=== PATIENT | male | born 1940 | race Caucasian/White ===

== ENCOUNTER 2016-08-03 17:31 | Emergency (ER) | payer MEDICARE, OTHER ==
[2016-08-03 18:15] LABS: Hematocrit 44 % (42-52); Hemoglobin 13.9 g/dl (14.0-18.0); Mean Corpuscular HGB Conc 32 g/dl (31-36); Mean Corpuscular Hemoglobin 25 pg (27-31); Mean Corpuscular Volume 79 fL (80-94); Mean Platelet Volume 8 um3 (7.4-10.4); Red Blood Count 5.55 10^6/ul (4.0-5.4); Red Cell Distribution Width 18 % (10.5-15); White Blood Count 8.6 10^3/ul (3.5-10.8)
[2016-08-03] MEDS ORDERED: NS 0.9% 1000 ML* 1,000 ML IV SCH (18:15)
[2016-08-03 18:33] LABS: ALT 10 U/L (7-52); AST 20 U/L (13-39); Albumin 4.2 g/dL (3.2-5.2); Alkaline Phosphatase 69 U/L (34-104); Anion Gap 6 mmol/L (2-11); BUN/Creatinine Ratio 24.6 (8-20); Blood Urea Nitrogen 16 mg/dL (6-24); C Reactive Protein 9.82 mg/L (< 5.00); CO2 Carbon Dioxide 28 mmol/L (22-32); Calcium 10.6 mg/dL (8.6-10.3); Chloride 105 mmol/L (101-111); EGFR African American 154.4 (>60); EGFR Non-African American 120.1 (>60); Globulin 2.9 g/dL (2-4); Glucose 159 mg/dL (70-100); Lipase 59 U/L (11.0-82.0); Potassium 4.2 mmol/L (3.5-5.0); Sodium 139 mmol/L (133-145); Total Protein 7.1 g/dL (6.4-8.9)
[2016-08-03] MEDS ORDERED: Iodixanol* (CONTRAST) 320 MG/ML 100 ML SDV IV ONE (18:56)
--- NOTE | 2016-08-03 19:25 | ED ---
Abdominal Pain/Male - HPI Summary HPI Summary: Patient presents after missing a step at home and falling on his deck. He landed on his left side and suffered abrasions to his elbow and knee. His main concern is an area of swelling on his left abdomen just below his ribs that is taut and tender. He is on Warfarin for an artificial valve and hx of DVT. He denies hitting his head, neck pain, LOC, SOB, CP or lightheadedness. His pain is made worse by coughing. No N/V/D or blood in his urine. - History of Current Complaint Chief Complaint: EDTraumaMultiple Stated Complaint: FALL/LT SIDE INJURY Time Seen by Provider: 08/03/16 18:03 Hx Obtained From: Patient, Family/Diamond Polisher Onset/Duration: Sudden Onset Timing: Constant Severity Initially: Mild Severity Currently: Moderate Pain Intensity: 5 Location: Discrete At: LUQ Radiates: No Character: Dull Aggravating Factor(s): Movement Alleviating Factor(s): Nothing Associated Signs And Symptoms: Positive: Negative - Allergies/Home Medications Allergies/Adverse Reactions: Allergies Allergy/AdvReac Type Severity Reaction Status Date / Time Phenytoin [From Dilantin] AdvReac Severe DESTROYS Verified 04/14/14 12:58 PLATELETS Valproic Acid [From Depakote] AdvReac Severe RAISES Verified 04/14/14 12:58 AMMONIA LEVELS Stat[place] AdvReac Intermediate CRAMPS Verified 04/14/14 12:58 PMH/Surg Hx/FS Hx/Imm Hx Endocrine/Hematology History: Reports: Hx Anticoagulant Therapy, Hx Diabetes Denies: Hx Systemic Lupus Erythematosus, Hx Thyroid Disease, Hx Anemia Cardiovascular History: Reports: Hx Hypercholesterolemia, Hx Hypertension, 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, Other Cardiovascular Problems/Disorders - A-FIB, HTN Denies: Hx Angina, Hx Congestive Heart Failure Respiratory History: Denies: Hx Sleep Apnea GI History: Reports: Hx Gall Bladder Disease - removed 5 yrs ago, Hx Gastroesophageal Reflux Disease, Other GI Disorders - DYSLIPIDEMIA, GERD Denies: Hx Ulcer History: Reports: Hx Renal Disease - RENAL FAILURE DURING SEPTIC EPISODE YRS AGO, Other Problems/Disorders - RENAL FAILURE AT TIME OF SEPTIC EPISODE YRS AGO Denies: Hx Dialysis, Hx Kidney Infection, Hx Kidney Stones Musculoskeletal History: Reports: Hx Bursitis Denies: Hx Gout Sensory History: Reports: Hx Contacts or Glasses, Hx Hearing Aid Denies: Hx Glaucoma, Hx Macular Degeneration Opthamlomology History: Reports: Hx Contacts or Glasses Denies: Hx Glaucoma, Hx Macular Degeneration Neurological History: Reports: Hx Seizures - R hand, Other Neuro Impairments/ Disorders - SEIZURES, BENIGN BRAIN TUMOR, DEPRESSION, SLEEP DISORDER Denies: Hx Headaches, Hx Migraine Psychiatric History: Denies: Hx Suicide Attempt, Hx Substance Abuse - Cancer History Cancer Type, 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 Hx Chemotherapy: No Hx Radiation Therapy: No - Surgical History Surgery Procedure, Year, and Place: TONSILECTOMY, AORTIC VALVE REPLACED , L HIP REPLACEMENT, EXCISION OF BENIGN MENINGIOMA, MALIK, TONSILECTOMY Hx Anesthesia Reactions: No Infectious Disease History: No Infectious Disease History: Denies: Hx Hepatitis, Hx Shingles, Hx Tuberculosis, Traveled Outside the [place] in Last 30 Days - Family History Known Family History: Positive: None - Social History Occupation: Retired Lives: With Family Alcohol Use: None Substance Use Type: Reports: None Hx Tobacco Use: Yes - CHEW Smoking Status (MU): Former Smoker Review of Systems Negative: Chest Pain Negative: Shortness Of Breath Positive: Abdominal Pain. Negative: Vomiting, Diarrhea, Nausea Positive: Myalgia, Edema - LUQ of abdomen Positive: Bruising - left elbow, Other - abrasion left knee Negative: Paresthesia, Numbness All Other Systems Reviewed And Are Negative: Yes Physical Exam - Summary Physical Exam Summary: VITAL SIGNS: Reviewed. GENERAL: Patient is a obese male who is lying comfortable in the stretcher. Patient is not in any acute respiratory distress. HEAD AND FACE: Normocephalic and atraumatic. EYES: PERRLA, EOMI x 2, No injected conjunctiva. EARS: Hearing grossly intact. Ear canals and tympanic membranes are WNL. MOUTH: Oropharynx within normal limits. NECK: Supple, trachea is midline, no adenopathy, no JVD. CHEST: Symmetric, no tenderness at palpation LUNGS: Clear to auscultation bilaterally. No wheezing or crackles. CVS: RRR,, S1 and S2 present, no murmurs or gallops appreciated. ABDOMEN: Soft, positive induration in the LLQ and left flank area of approximately 10 cm x 3 cm EXTREMITIES: FROM in all major joints, no edema, no cyanosis or clubbing. NEURO: Alert and oriented x 3. No acute neurological deficits. Speech is normal. SKIN: Dry and warm Triage Information Reviewed: Yes Vital Signs On Initial Exam: Initial Vitals Temp Pulse Resp BP Pulse Ox 98.4 F 100 19 120/84 93 08/03/16 17:38 08/03/16 17:38 08/03/16 17:38 08/03/16 17:38 08/03/16 17:38 Vital Signs Reviewed: Yes Appearance: Positive: Well-Appearing, Well-Nourished, Pain Distress Skin: Positive: Warm, Skin Color Reflects Adequate Perfusion, Dry, Tender - abrasion to left knee cap; left elbow has mild bruising and abrasion over lateral epicondyle, Soft Head/Face: Positive: Normal Head/Face Inspection Eyes: Positive: EOMI, KONRAD, Conjunctiva Clear ENT: Positive: Hearing grossly normal Neck: Positive: Supple, Nontender Respiratory/Lung Sounds: Positive: Clear to Auscultation, Breath Sounds Present Cardiovascular: Positive: RRR Abdomen Description: Positive: Soft - RLQ, RUQ, LLQ, Distended - LUQ with taut palpable mass. Negative: Nontender, CVA Tenderness (R), CVA Tenderness (L), Pulsatile Mass Bowel Sounds: Positive: Hypoactive Musculoskeletal: Positive: Strength/ROM Intact Neurological: Positive: Sensory/Motor Intact, Alert, Oriented to Person Place, Time, CN Intact II-III, NV Bundle Intact Distally Psychiatric: Positive: Affect/Mood Appropriate AVPU Assessment: Alert - [place] Coma Scale Coma Scale Total: 15 Diagnostics - Vital Signs Vital Signs Temp Pulse Resp BP Pulse Ox 08/03/16 19:00 93 21 119/72 94 08/03/16 18:50 88 24 106/63 91 08/03/16 18:45 105/59 08/03/16 18:43 82 17 92 08/03/16 18:40 86 18 109/55 92 08/03/16 18:36 98.4 F 94 20 105/63 93 08/03/16 18:30 86 17 105/63 93 08/03/16 18:15 85 19 111/74 93 08/03/16 18:06 84 21 112/61 93 08/03/16 18:00 88 20 114/68 92 08/03/16 17:53 92 87 08/03/16 17:52 121/73 08/03/16 17:38 98.4 F 100 19 120/84 93 - Laboratory Lab Results: Lab Results 08/03/16 08/03/16 08/03/16 Range/Units 18:08 18:08 18:08 WBC 8.6 (3.5-10.8) 10^3/ul RBC 5.55 H (4.0-5.4) 10^6/ul Hgb 13.9 L (14.0-18.0) g/dl Hct 44 (42-52) % MCV 79 L (80-94) fL MCH 25 L (27-31) pg MCHC 32 (31-36) g/dl RDW 18 H (10.5-15) % Plt Count 215 (150-450) 10^3/ul MPV 8 (7.4-10.4) um3 Neut % (Auto) 65.4 (38-83) % Lymph % (Auto) 14.8 L (25-47) % [place] % (Auto) 11.3 H (1-9) % Eos % (Auto) 8.1 H (0-6) % Baso % (Auto) 0.4 (0-2) % Absolute Neuts (auto) 5.6 (1.5-7.7) 10^3/ul Absolute Lymphs (auto) 1.3 (1.0-4.8) 10^3/ul Absolute Monos (auto) 1.0 H (0-0.8) 10^3/ul Absolute Eos (auto) 0.7 H (0-0.6) 10^3/ul Absolute Basos (auto) 0 (0-0.2) 10^3/ul Absolute Nucleated RBC 0.03 10^3/ul Nucleated RBC % 0.4 Sodium 139 (133-145) mmol/L Potassium 4.2 (3.5-5.0) mmol/L Chloride 105 (101-111) mmol/L Carbon Dioxide 28 (22-32) mmol/L Anion Gap 6 (2-11) mmol/L BUN 16 (6-24) mg/dL Creatinine 0.65 L (0.67-1.17) mg/dL Est GFR ( Amer) 154.4 (>60) Est GFR (Non-Af Amer) 120.1 (>60) BUN/Creatinine Ratio 24.6 H (8-20) Glucose 159 H (70-100) mg/dL Lactic Acid 1.4 (0.5-2.0) mmol/L Calcium 10.6 H (8.6-10.3) mg/dL Total Bilirubin 0.20 (0.2-1.0) mg/dL AST 20 (13-39) U/L ALT 10 (7-52) U/L Alkaline Phosphatase 69 (34-104) U/L C-Reactive Protein 9.82 H (< 5.00) mg/L Total Protein 7.1 (6.4-8.9) g/dL Albumin 4.2 (3.2-5.2) g/dL Globulin 2.9 (2-4) g/dL Albumin/Globulin Ratio 1.4 (1-3) Lipase 59 (11.0-82.0) U/L Result Diagrams: 08/03/16 18:08 08/03/16 18:08 Lab Statement: Any lab studies that have been ordered have been reviewed, and results considered in the medical decision making process. - CT No standard instances CT Interpretation: Positive (See Comments) - 10.6cm by 6.4cm by 14cm cephalocaudal intramuscular hematoma at the Left external oblique at the level of the anterior superior iliac spine. Hyperdense focus within hematoma consistent with contrast extravasation indicating ongoing arterial hemorrhage. CT Interpretation Completed By: Radiologist Abdominal Pain Fem Course/Dx - Diagnoses Differential Diagnosis/HQI/PQRI: Abdominal Aortic Aneurysm, Appendicitis, Bowel Obstruction, Urinary Tract Infection, Other Provider Diagnoses: intramuscular abdominal hemorrhage Discharge - Discharge Plan Condition: Stable Disposition: TRANS HIGHER LVL OF CARE FAC Referrals: Scottie Ziegler MD [Primary Care Provider] -
--- NOTE | 2016-08-03 19:55 | RAD ---
INDICATION: Fall large LEFT abdominal hematoma. Post cholecystectomy. COMPARISON: February 05, 2016 chest radiograph and April 14, [address] TECHNIQUE: Multidetector CT images were obtained from the lung apices to the ischial tuberosities with 99 mL Visipaque 320 IV contrast. No oral contrast administered. CHEST REPORT: Advanced emphysema with associated mild to moderate interstitial fibrosis. No focal pulmonary lesion, pulmonary contusion, pleural effusion, pneumothorax. Median sternotomy wires and prosthetic aortic valve. Negative for cardiomegaly or pericardial effusion. Negative for mediastinal hematoma. No evidence for traumatic injury of the thoracic aorta. Negative for aortic aneurysm or dissection. Negative for thoracic lymphadenopathy. Negative for fracture of the bony thorax. Diffuse thoracic degenerative spondylosis with multilevel ankylosis. Negative for soft tissue hematoma. CHEST IMPRESSION: 1. No evidence for traumatic thoracic injury. 2. Advanced emphysema with associated mild to moderate interstitial fibrosis. ABDOMEN PELVIS REPORT: Post cholecystectomy. Unremarkable liver without evidence for traumatic injury. Negative for biliary dilatation. Moderately atrophic pancreas without suspicious finding. Normal size spleen without evidence for traumatic injury. Negative for CT abnormality of the upper GI or small bowel. The appendix is not visualized. Unremarkable colon. Negative for ascites, free air, hernias. Normal adrenal glands. Unremarkable kidneys with symmetric contrast enhancement. Unremarkable ureters. Partially distended urinary bladder is partially obscured due to artifact from the LEFT hip prosthesis without gross abnormality. Negative for lymphadenopathy. 0.7 cm retroaortic lymph node subjacent to the RIGHT carotid the diaphragm is grossly unchanged. Atherosclerotic calcification of normal diameter abdominal aorta and iliac arteries. Negative for retroperitoneal hematoma. Physiologic distention of the IVC. 10.6 cm AP by 6.4 cm transverse by 14 cm cephalocaudal intramuscular hematoma at the LEFT external oblique abdominal muscle centered at the cephalocaudal level of the anterior superior iliac spine. Hyperdense focus within the hematoma is consistent with contrast extravasation indicating ongoing arterial hemorrhage. Negative for additional soft tissue plane hematoma. Negative for lumbar sacral spine, pelvis, or proximal femur fracture or articular malalignment. Normally located LEFT total hip prosthesis. ABDOMEN PELVIS IMPRESSION: 1. No evidence for abdominal pelvic traumatic visceral injury. 2. 10.6 cm AP by 6.4 cm transverse by 14 cm cephalocaudal intramuscular hematoma at the LEFT external oblique abdominal muscle centered at the cephalocaudal level of the anterior superior iliac spine. Hyperdense focus within the hematoma is consistent with contrast extravasation indicating ongoing arterial hemorrhage. Results discussed with VINCENT Harris 08/03/2016 7:49 PM EDT
[2016-08-03] MEDS ORDERED: Phytonadione INJ* 1 MG/0.5 ML ML IM ONE (20:00)
[2016-08-03 20:42] LABS: Alcohol < 10 mg/dL (<10)
[2016-08-03] MEDS ORDERED: Ondansetron INJ* 2 MG/ML VIAL IV ONE (20:43)
[2016-08-03] MEDS ORDERED: Morphine INJ* 4 MG/ML 1 ML SYRINGE IV ONE (20:43)
[2016-08-03] MEDS ORDERED: Ondansetron INJ* 2 MG/ML VIAL ONE (20:44)
[2016-08-03] MEDS ORDERED: Morphine INJ* 4 MG/ML 1 ML SYRINGE ONE (20:44)
[2016-08-03] MEDS ORDERED: Phytonadione INJ (Adult)* 10 MG/ML 1 ML AMP IM ONE (21:00)
[2016-08-03 21:12] VITALS: BP 130/99
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
== END 2016-08-03 21:09 | disposition short-term general hospital (02) ==
LOC: ED 17:31
DX: R58 Hemorrhage, not elsewhere classified (principal); S30.1XXA Contusion of abdominal wall, initial encounter; S80.219A Abrasion, unspecified knee, initial encounter; S50.319A Abrasion of unspecified elbow, initial encounter; W10.9XXA Fall (on) (from) unspecified stairs and steps, initial encounter; Y93.9 Activity, unspecified; Y92.89 Other specified places as the place of occurrence of the external cause; Z87.891 Personal history of nicotine dependence; Z79.01 Long term (current) use of anticoagulants; E11.9 Type 2 diabetes mellitus without complications; Z86.79 Personal history of other diseases of the circulatory system
CPT/HCPCS: 36415; 71260; 74177; 80053; 80320; 83605; 83690; 85025; 85610; 85730; 86140; 86850; 86900; 86901; 86927; 96372; 96375; 99284; G0480; J2270; J2405; J3430; P9017; Q9967

== ENCOUNTER 2017-05-26 12:00 | Inpatient (IN) | payer MEDICARE, OTHER ==
[2017-05-26] MEDS ORDERED: NS 0.9% 1000 ML* 1,000 ML IV ONE (12:19)
[2017-05-26] MEDS ORDERED: Piperacillin/Tazobac ADVAN(*) 3.375 GM in NS 0.9% 100 ML* 100 ML IVPB ONE (12:40)
[2017-05-26 12:41] LABS: Hematocrit 49 % (42-52); Hemoglobin 15.3 g/dl (14.0-18.0); Mean Corpuscular HGB Conc 31 g/dl (31-36); Mean Corpuscular Hemoglobin 26 pg (27-31); Mean Corpuscular Volume 83 fL (80-94); Mean Platelet Volume 8.7 um3 (7.4-10.4); Platelet Count 276 10^3/ul (150-450); Red Blood Count 5.88 10^6/ul (4.0-5.4); Red Cell Distribution Width 17 % (10.5-15); White Blood Count 13.9 10^3/ul (3.5-10.8)
[2017-05-26 13:01] LABS: EGFR Non-African American 26.1 (>60)
--- NOTE | 2017-05-26 13:03 | RAD ---
Indication: Low blood pressure. Confusion. Cardiac disease. Comparison: August 03, 2016 CT chest. Technique: Upright AP 1240 hours Report: Suboptimal inspiration for this patient compared with the prior exam with resulting crowding of the pulmonary markings. On this basis the RIGHT greater than LEFT basilar alveolar consolidation may represent atelectasis although pneumonia is not excluded. Diffuse mild prominence of interstitial markings with thickened peripheral interlobular septa. Small bilateral pleural effusions. Negative for pneumothorax. Median sternotomy wires. Mild cardiomegaly. Mildly prominent and ill-defined central pulmonary vasculature. IMPRESSION: 1. The constellation of findings is most consistent with pulmonary vascular congestion and interstitial edema with associated small effusions. 2. RIGHT greater than LEFT basilar atelectasis favored over pneumonia. 3. Chronic obstructive pulmonary disease based on correlation with prior CT.
[2017-05-26] MEDS ORDERED: DOPamine 200 MG/250 ML IVPREM* 200 MG/250 ML ML IV ONE (13:17)
[2017-05-26 13:21] LABS: ABS Basophils 0 10^3/ul (0-0.2); ABS Eosinophils 0.2 10^3/ul (0-0.6); ABS Lymphocytes 1.1 10^3/ul (1.0-4.8); ABS Neutrophils 10.6 10^3/ul (1.5-7.7); ABS Nucleated RBC 0 10^3/ul; Eosinophil % 1.2 % (0-6); Lymphocyte % 7.9 % (25-47); Nucleated Red Blood Cells % 0.1
[2017-05-26] MEDS ORDERED: DOPAMINE IV ONE ×3 (13:45→14:00)
[2017-05-26] MEDS ORDERED: [UNRECOGNIZED DRUG - OTHER] IV ONE ×2 (14:00)
[2017-05-26] MEDS ORDERED: DEXTROSE IV ONE ×2 (14:00)
[2017-05-26] MEDS ORDERED: DOPamine 200 MG/250 ML IVPREM* 200 MG/250 ML ML IV SCH (14:30)
--- NOTE | 2017-05-26 14:54 | RAD ---
INDICATION: Renal failure COMPARISON: None TECHNIQUE: Longitudinal and transverse scans of the kidneys were obtained. FINDINGS: Kidneys: The kidneys are normal in size and echogenicity. No renal masses, calculi, or hydronephrosis is seen. The right kidney measures 10.5 x 5.6 x 5.7 cm and the left kidney 11.9 x 5.4 x 4.9 cm. Other: None IMPRESSION: NORMAL EXAMINATION.
--- NOTE | 2017-05-26 15:02 | ECHO ---
Patient: JINNY MORRISON [facility] Rec#: [id number] : 1940 Date: 05/26/2017 Age: 77y Height: 177.8 cm / 70.0 in Weight: 93.89 kg / 206.9 lbs Sex: M BSA: 2.12 Room#: -14 Admit Date#: 05/26/2017 Type: Inpatient Referring: Shane Tirado Reading: Zeyad Goldstein MD [employer] Services: Adelina Stuart RDCS CC: Scottie Ziegler MD Transthoracic Echocardiogram Indication: Hypotension, CHF BP: 71/45 HR: 71 Rhythm: NSR Findings History: DM, CVA, seizure, A-fib, HTN, hyslipidemia, AVR porcine, meningioma, former smoker. Technical Comments: The study quality is fair. The study is technically limited due to poor acoustic windows. Completed at 1445. Left Ventricle: The left ventricular chamber size is normal. Mild concentric left ventricular hypertrophy is observed. There is global hypokinesis of the left ventricle with minor regional variation. There is severely decreased left ventricular systolic function. The estimated ejection fraction is 25-30%. There is septal flattening of the interventricular septum consistent with right ventricular volume or pressure overload. The assessment of diastolic function is non-diagnostic. Left Atrium: The left atrium is severely dilated. Right Ventricle: The right ventricle is moderately dilated. The right ventricular global systolic function is mildly reduced. Right Atrium: The right atrial cavity size is severely dilated. Aortic Valve: The aortic valve structure is not well visualized. There is trace to mild aortic regurgitation. There is mild aortic stenosis. The mean gradient of the aortic valve is 14.27 mmHg. The peak instantaneous gradient of the aortic valve is 20.79 mmHg. A porcine bio-prosthetic aortic valve is present. which appears to be normally functioning with trace to mild aortic regurgitation and mild aortic stenosis. Mitral Valve: There is mitral annular calcification. The mitral valve leaflets are mildly thickened. There is mild mitral regurgitation. Tricuspid Valve: The tricuspid valve leaflets are normal. There is mild tricuspid regurgitation. Unable to estimate the right ventricular systolic pressure. Pulmonic Valve: The pulmonic valve appears normal. There is a trace pulmonic regurgitation. There is no pulmonic stenosis. Pericardium: There is no significant pericardial effusion. A pericardial fat pad is visualized. Aorta: There is mild dilatation of the ascending aorta.MD re-measurement. The aortic arch is not well visualized. The aortic root is normal in size. Pulmonary Artery: The main pulmonary artery appears normal. Venous: The venous system is not well visualized. The inferior vena cava is not visualized. Conclusions There is severely decreased left ventricular systolic function. The estimated ejection fraction is 25-30%. There is global hypokinesis of the left ventricle with minor regional variation. The left ventricular chamber size is normal. Mild concentric left ventricular hypertrophy is observed. There is septal flattening of the interventricular septum consistent with right ventricular volume or pressure overload. The left atrium is severely dilated. The right ventricle is moderately dilated. The right ventricular global systolic function is mildly reduced. The right atrial cavity size is severely dilated. A porcine bio-prosthetic aortic valve is present. which appears to be normally functioning with trace to mild aortic regurgitation and mild aortic stenosis. There is mild mitral regurgitation. There is mild tricuspid regurgitation. There is mild dilatation of the ascending aorta. Since the prior echocardiogram completed 07/30/15, pertinent change is prior normal left ventricular systolic function reported. Measurements Name Value Normal Range RVIDd (AP) 2D 3.6 cm (0.9 - 2.6) RVDdMajor (2D) 5.6 cm (2.2 - 4.4) RAd ISD 4CH 6.5 cm (3.4 - 4.9) RA (A4C)W 6.2 cm (2.9 - 4.6) IVSd (2D) 1.3 cm (0.6 - 1) LVPWd (2D) 1.2 cm (0.6 - 1) LVIDd (2D) 4.2 cm (3.6 - 5.4) LVIDs (2D) 3.8 cm - LV FS (2D) 12 % (25 - 45) Aortic Annulus 1.9 cm (1.4 - 2.6) Ao root diameter (2D) 3.5 cm (2.1 - 3.5) Ascending Ao 3.6 cm (2.1 - 3.4) LA dimension (AP) 2D 4.2 cm (2.3 - 3.8) LAd ISD 4CH 6.7 cm (2.9 - 5.3) LA ISD 4CH W 5.1 cm (2.5 - 4.5) Name Value Normal Range LA ESV SP 4CH (A/L) 135 ml - LA ESV SP 2CH (A/L) 107 ml - LA ESV BP (A/L) 126 ml - LA ESV BP (A/L) index 59 ml/m2 - LA ESV SP 4CH (MOD) 128 ml - LA ESV SP 2CH (MOD) 106 ml - Name Value Normal Range MV E-wave Vmax 0.54 m/sec - MV deceleration time 142.1 msec - MV A-wave Vmax 0.4 m/sec - MV E:A ratio 1.34 ratio - LV septal e' Vmax 0.02 m/sec - LV lateral e' Vmax 0.05 m/sec - LV E:e' septal ratio 27 ratio - LV E:e' lateral ratio 10.8 ratio - Name Value Normal Range AV Vmax 2.3 m/sec - AV VTI 45.4 cm - AV peak gradient 20.79 mmHg - AV mean gradient 14.27 mmHg - LVOT diameter 2 cm - LVOT Vmax 0.46 m/sec - LVOT VTI 9.48 cm - LVOT peak gradient 0.88 mmHg - LVOT mean gradient 0.42 mmHg - DOI (VTI) 0.21 ratio - SV LVOT 29.51 ml - RAFFAELE Vmax 0.91 m/sec - Name Value Normal Range TR peak gradient 19 mmHg - RAP 8 mmHg - Name Value Normal Range PV Vmax 0.44 m/sec - PV peak gradient 0.8 mmHg -
--- NOTE | 2017-05-26 15:08 | HP ---
H&P (Free Text) History and Physical: CRITICAL CARE MEDICINE DATE: 05/26/17 TIME: 1355 PRIMARY CARE PROVIDER: Toney REFERRING PROVIDER: Celestino REASON/CHIEF COMPLAINT: hypotension HISTORY OF PRESENT ILLNESS: 77 yo M with h/o CVA, AVR, afib, meningioma, seizure disorder presenting altered today with hypotension. Pt lives alone. Was to see pcp today for low bp but was confused and drove to wrong place. brought into ED with sbp 70s and 60s. Hr 60s. Altered. cxr with effusions and airspace dz. icu consulted pt only c/o back brown. REVIEW OF SYSTEMS: As per HPI. limted sec to acuity. family states, some live close by and hadn't notice much abnormal other then over longger time span pt with dec energy and sleeping alot. no fevers known. PAST MEDICAL HISTORY: As per HPI. panemphysema, nocturnal O2 use, early dementia MEDICATIONS: Reviewed per list. ALLERGIES: Reviewed. multiple SOCIAL HISTORY: Reviewed. lives alone. daughter lives next door - proxy FAMILY HISTORY: Noncontributory at present. PHYSICAL EXAM: Vital Signs: Reviewed. as above. RR teens to 20. Neurologic: encephalopathic. prebycusis. lethargic. can follow commands weakly. HEENT: pupils reactive. mmm. Cardiovascular: distant, S1, S2, slight murmur but difficult to auscultate. sternotomy scar. Respiratory: dec bl. poor effort but able to attempt sniff breaths just not much excursion. Abdomen: obese, soft, anasarca Extremities: 4+ edema; cold, cyanotic distally Access: piv LABS: Reviewed. IMAGING: Reviewed. MEDICATIONS: Reviewed. ASSESSMENT: 77 M Acute decompensated systolic heart failure Cardiogenic shock Acute hypoxic resp failiure Atelectasis and pulm edema/effusions Acute renal failuire Hypoxic encephalopathy PLAN: Neurologic: state sec to shock - f/u Cardiovascular: hypoperfused. cold and wet. had intravenous fluid load and now hold off on further. needs dopamine in ED. potential dobutamine better but needs bp first. Previous echo with preserved systolic fx - needs echo eval and question valve. cards eval. not acting ischemic but can f/u upon with trop and cards eval. not acting like tako tsubo, but family has been worried about pts depression and lost of one year ago. -await echo. hr ok to low. can check bp in all ext but globally low vs a unilateral ailment. cardiac silhouette large on cxr but echo should be able to help with his overall diagnostic needs. Respiratory: headed towards need for mechanical ventilation if pump continues to fail but trying supplemental O2 support first and see if he can rally with inotropic needs. If failing would be considering intubation, but need to discuss code status further given his underlying disease processes, especially with his acute fails as well. proxy is a nurse and family states she is on her way in. Gastrointestinal: npo. sup Renal/Metabolic: deborah - check us for what it is worth to ensure ailments didn't originate with renal failure or obstruction, as it seems more prerenal perfusion lost and towards atn. Infectious Disease: recieved abx in ED, but infective burden seeming unlikely. atelectasis present. mild reactive wbc. can hold off on further abx for now unless echo suggest otherwise. Hematology: hemoconcentrated concerns as well; compartmental vasc vol distribution concerning given his cardiogenic shock currently. Endocrine: no h/o steroid needs. can consider stress dose for what its worth. Musculoskeletal: bedrest Psych/Social: d/w family at bedside but history limited. explained we will revisit dynamics soon. Supportive and preventative care as ordered. Vaccine: f/u VTE prophylaxis: heparin Osuna catheter given critical illness, monitoring needs for accurate assessment of DEBORAH and KDIGO criteria for critically ill patients and to avoid potential harms of urinary retention, skin breakdown/ulcers. Disposition: ICU; prognosis very guarded Code Status: Full presently Critical Care Time: 45min Riccardo Velasquez DO
[2017-05-26] MEDS ORDERED: EPINEPHrine SYR 0.1 MG/ML* (1:10,000) SYRINGE ONE (15:30)
[2017-05-26] MEDS ORDERED: Amiodarone IV VIAL* 50 MG/ML 3 ML VIAL (150 MG) ONE (15:30)
[2017-05-26] MEDS ORDERED: Sodium Bicarbonate 8.4% IV* 50 ML VIAL ONE (15:30)
[2017-05-26 17:52] VITALS: BP 123/85
--- NOTE | 2017-05-26 18:05 | PN ---
Progress Note - Progress Note Date of Service: 05/26/17 Note: CRITICAL CARE MEDICINE Date: 05/26/17 Time: 1500 Patient seen shortly after icu arrival. pt bp/perfusion hadn't improved in ED. dopamine at 10m/kg/min. Hr up to 90s and sbp 70s. Pt still cyanotic although seemed a little more awake. Dopamine inc to 15 per my request. Few minutes beyond that pt with VT initially with pulse but fading quickly and mentation crashing as we placed pads and prepared to defibrillate. 200J delivered. Pt with seeming ventricular escape beats and then back into VT. Attempted 200J again and similar dynamics. CPR initiated and charged again as known severe cardiomyopathy and knowing this is a dopamine beta failure. Dopamine already held and CPR continued at this juncture eventhough he had ventricular rates into 60s with soft pulse (similar to pre dopamine) but unable to hold perfusion. Epi then given. Cyanosis continued. Bag ventilation via mask ongoing. Not prudent for airway yet. Quickly d/w family as they were present and his daughter, Luisa - proxy, had just arrived. Exlained we are supporting him as we can and eventhough we are early into an arrest and as much as I think we can augmented perfusion for now, this isn't going to work out as his cardiac function is to weak to maintain ROSC and understanding of his underlying co- morbidities. Explained we will continue to give him and oppurtunity but I may not keep code going too long f not able to maintain without cpr. Epi induced VT then and reshocked with 200J. Amiodarone 300mg given. He would have soft pulses without compression however cpr continued at my direction throughout much of his length code in order to augment perfusion. Added levophed gtt early and titrated up rapidly to 30mcg/min Gave bicarb to help stability. Pt with trimus and rigidity post defibrillations and taunt jaw. bag ventilation but with bloody pulmonary edema now. give 100mcg fentanyl ultimately with some relaxation. CPR continued and since HR remaining in 60s with weak pulses and poor perfusion attempted 1/2 mg epi to try not to foster vt. As first attempt for airway with grade 4 view and significant blood requiring suction. Relatively blind intubation not passing. Glidescope then utilized and able to pass 8.0 ett to 23cm. visualized through cords and bs appreciated but etco2 not functioning. Another epi given and pts perfusion still poor with less hr response. add back on dopa at 10. Hr did climb again. calcium given and another bicarb. explained to family the grim px and concerns here and we would prepare to stop but would rather they be in the room with pt and see if he can maintain a pulse without further cpr. They understood and came into room. CPR with held and chemical only the plan. Cessation of cpr and pt without pulse but did then start to have a pulse from 60s and slowly climbing over next few minutes. bag ventilation continued. levophed gtt. started try to walk down the dopamine as his rate would increase towards 90s and ten low 100s. After some time with this pt with return to VT. Defibrillated with 200j and rosc for a bit. 150mg amio given. another bicarb. explained to family this will likely recur and would not escalate further. behind out current care. Further VT delevoped and attempted defibrillation x3 but with rhytm coursing towards VF. Family present and explained we would hold further and they agreed with letting him go. Pt pronounced at 1611. D/w family after, with spiritual care present, regarding his dx and tx dynamics. They expressed appropriate shock and understanding. All in agreement against any autopsy need. Condolences given. Disposition: . Critical Care Time: 60 min excluding procedure time (intubation documented above ). Riccardo Velasquez DO
--- NOTE | 2017-05-26 18:06 | DS ---
CRITICAL CARE MEDICINE DISCHARGE SUMMARY ADMISSION DATE: 05/26/2017 ICU ADMISSION DATE: 05/26/2017 ICU DISCHARGE DATE: 05/26/2017 PRIMARY CARE PROVIDER: Toney. REFERRING PHYSICIAN: Celestino. DIAGNOSIS: 1. Acute decompensated systolic heart failure. 2. Cardiogenic shock. 3. Acute hypoxic and hypercarbic respiratory failiure. 4. Pulmonary edema. 5. Bilateral pleural effusions with atelectasis. 6. Empysema. 7. Acute renal failure. 8. Hypoxic encephalopathy. HOSPITAL COURSE: 77 year old male with history of CVA, AVR, afib, meningioma, seizure disorder presenting altered today with hypotension. Pt lives alone. Was to see doctor today for low blood pressure but was confused and drove to wrong place. Brought into ED. Seen in ED with cardiogenic shock, seemingly non-acute ischemia but cold and wet needing inotropic support and diagnostic echocardiogram and cardiology evaluation with ICU admission. Patient placed on peripheral dopamine with realization he may need further intropic agents but needing blood pressure as well. PICC consult for central access. Risk for intubation and already with multisystem organ failure. Dopamine increased in icu given poor perfusion and shortly after patient with ventricular tachycardia with worsening perfusion requuiring defibrillation and long code ensuing from there (see code note). Although he had some pulses during his perfusion and recurrent VT from inotropics, despite antiarrythmics, was all in a failing effort. Family at bedside and after almost an hour of interventions and supports patient passed with family at bedside. Pt pronounced at 1611.
--- NOTE | 2017-05-26 23:17 | CONS ---
CC: Scottie Ziegler MD CARDIOLOGY CONSULTATION: DATE OF CONSULT: 05/26/17 REFERRING PHYSICIAN: Vladimir Velasquez DO REASON FOR CARDIOLOGY CONSULT: Hypotension, new cardiomyopathy in patient with AVR, and runs of ventricular tachycardia. HISTORY OF PRESENT ILLNESS: Mr. 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 Today he was going to see his primary care physician, but his brother who was taking him noted that he was quite confused and brought him to the [facility] [place] and he has now been admitted to the ICU. The patient has not been able to provide much meaningful history and upon my arrival, was beginning to have runs of ventricular tachycardia requiring external defibrillation His daughter and other family members who were present with the patient do not recall that the patient was having chest pain recently. 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 MEDICATIONS: Outpatient medications listed as: 1. Aspirin 81 mg once a day. 2. Metformin 500 mg p.o. t.i.d. 3. Lasix 40 mg p.o. daily p.r.n. 4. Glipizide 5 mg p.o. b.i.d. 5. Lopid 600 mg p.o. b.i.d. 6. Keppra 750 mg p.o. b.i.d. 7. Pepcid 40 mg p.o. b.i.d. 8. Trileptal 450 mg p.o. b.i.d. 9. Metoprolol tartrate 25 mg once a day. 10. Potassium chloride 20 mEq once a day. 11. Coumadin as directed. 12. Fosinopril 40 mg once a day. 13. Finasteride 5 mg once a day. ALLERGIES TO MEDICATIONS: Listed per chart review as: DILANTIN, STATINS, VALPROIC ACID. FAMILY HISTORY: Unable to obtain as the patient is not able to answer. SOCIAL HISTORY: Unable to obtain as the patient is not able to answer. REVIEW OF SYSTEMS: Unable to obtain as the patient is not able to answer. PHYSICAL EXAM: General: He is a chronically ill appearing gentleman. We are unable to assess reliable blood pressures. He is having runs of VT when he was placed on dopamine for hypotension and is requiring electrical therapy for that. HEENT: Cranium is normocephalic and atraumatic. He appears to have dry mucosal membranes. Neck veins are not able to be assessed. There are no carotid bruits. Visible skin. Does appear perfused, but he is pale. No significant kyphoscoliosis on recumbent back exam. Lungs reveal rales bilaterally anteriorly. Cardiac Exam: Limited. S1 and S2. Regular rate when he has his intrinsic rhythm. Soft systolic murmur heard without radiation. There is no rub, no gallop. PMI is nondisplaced. Abdomen is soft and nondistended, appears benign. Extremities: With 1 to 2+ peripheral edema. Pulse exam is limited. DIAGNOSTIC STUDIES/LAB DATA: The patient completed transthoracic echocardiogram on 05/26/17 (earlier today, please see also that report) which showed severely depressed left ventricular ejection fraction at 25% to 30% with septal flattening. Severe left atrial dilatation. Moderate right ventricular dilation with mildly reduced right ventricular size. Severe right atrial dilatation. Normally functioning aortic valve replacement. Mild mitral regurgitation, mild tricuspid regurgitation, mild dilatation of the ascending aorta. When compared to prior echocardiogram completed 07/30/15, pertinent change is prior normal left ventricular systolic function reported. White blood cell count 13.9, hematocrit 49, platelet count 276,000. Sodium 140 , potassium not reported, chloride 105, bicarbonate 23, BUN 40, creatinine 2.43 and his creatinine had been 0.65 on 08/03/16. Lactic acid 3.6, troponin 0.18. IMPRESSION: Mr. Buchanan is a 77-year-old gentleman with a history of paroxysmal atrial fibrillation and bio-prosthetic aortic valve replacement in the past who presents now with 4 days of shortness of breath,and he is now found to have congestive heart failure on exam with new cardiomyopathy complicated by runs of ventricular tachycardia requiring defibrillation. PLAN/RECOMMENDATIONS: For now, we will continue full cardiopulmonary resuscitation as that is apparently what the patient has indicated and that is supported by his family. Long-term prognosis does appear concerning given his new cardiomyopathy. We will continue to try to support him with dopamine and electrical therapy with external defibrillation and amiodarone as the antiarrhythmic at this time. I have discussed this in detail with the patient's family and they are aware of the patient's concerning prognosis. Other management as per the critical care medicine service and I have discussed the case in detail with Dr. Velasquez. Dear Dr. Velasquez, many thanks for allowing me to participate in the cardiovascular consultative care of Mr. Buchanan. Please do not hesitate to contact me if you have any questions or concerns regarding the patient's cardiovascular consultative care. [id number]/CPS #: [id number] MTDD
--- NOTE | 2017-05-27 08:07 | ED ---
Darwin Bryant Angela, scribed for Shane Tirado MD on 05/26/17 at 1227 . Shortness of Breath - HPI Summary HPI Summary: Pt is a 77 y/o male presenting to [facility] c/o SOB, hypotension and confusion. Family member also states pt has generalized weakness. Per family member, pt was supposed to see her PCP today regarding her hypotension. Family member states he suddenly became confused and drove to his brother's house forgetting where his PCP was located. Denies fever, chills, chest pain. He chews tobacco. Pt wears oxygen at home at night. PMHx includes HTN, CVA, aortic valve replacement. - History of Current Complaint Chief Complaint: EDShortnessOfBreath Time Seen by Provider: 05/26/17 12:19 Hx Obtained From: Patient, Family/[employer] Onset/Duration: Still Present Timing: Constant Current Severity: Moderate Dyspnea At: Rest Aggrevating Factors: Nothing Alleviating Factors: Nothing Associated Signs & Symptoms: Negative - Allergy/Home Medications Allergies/Adverse Reactions: Allergies Allergy/AdvReac Type Severity Reaction Status Date / Time phenytoin [From Dilantin] Allergy See Comment Verified 05/26/17 12:21 [id number] Reductase Allergy See Comment Verified 05/26/17 12:21 Inhibitor valproic acid Allergy See Comment Verified 05/26/17 12:21 Home Medications: Home Medications Cholecalciferol TAB* [Vitamin D TAB*] 2,000 units PO DAILY 05/26/17 [History Confirmed 05/26/17] Finasteride TAB* [Proscar TAB*] 5 mg PO DAILY 05/26/17 [History Confirmed ] Folic Acid TAB* [Folvite TAB*] 400 mcg PO DAILY 05/26/17 [History Confirmed 08/07] Multivitamins/Minerals TAB* [Theragran/minerals TAB*] 1 tab PO DAILY 05/26/17 [ History Confirmed 05/26/17] PMH/Surg Hx/FS Hx/Imm Hx Endocrine/Hematology History: Reports: Hx Anticoagulant Therapy, Hx Diabetes Denies: Hx Systemic Lupus Erythematosus, Hx Thyroid Disease, Hx Anemia Cardiovascular History: Reports: Hx Hypercholesterolemia, Hx Hypertension, 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, Other Cardiovascular Problems/Disorders - A-FIB, HTN Denies: Hx Angina, Hx Congestive Heart Failure Respiratory History: Denies: Hx Sleep Apnea GI History: Reports: Hx Gall Bladder Disease - removed 5 yrs ago, Hx Gastroesophageal Reflux Disease, Other GI Disorders - DYSLIPIDEMIA, GERD Denies: Hx Ulcer History: Reports: Hx Renal Disease - RENAL FAILURE DURING SEPTIC EPISODE YRS AGO, Other Problems/Disorders - RENAL FAILURE AT TIME OF SEPTIC EPISODE YRS AGO Denies: Hx Dialysis, Hx Kidney Infection, Hx Kidney Stones Musculoskeletal History: Reports: Hx Bursitis Denies: Hx Gout Sensory History: Reports: Hx Contacts or Glasses, Hx Hearing Aid Denies: Hx Glaucoma, Hx Macular Degeneration Opthamlomology History: Reports: Hx Contacts or Glasses Denies: Hx Glaucoma, Hx Macular Degeneration Neurological History: Reports: Hx Seizures - R hand, Other Neuro Impairments/ Disorders - SEIZURES, BENIGN BRAIN TUMOR, DEPRESSION, SLEEP DISORDER Denies: Hx Headaches, Hx Migraine Psychiatric History: Denies: Hx Suicide Attempt, Hx Substance Abuse - Cancer History Cancer Type, 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 Hx Chemotherapy: No Hx Radiation Therapy: No - Surgical History Surgery Procedure, Year, and Place: TONSILECTOMY, AORTIC VALVE REPLACED , HIP REPLACEMENT, EXCISION OF BENIGN MENINGIOMA, MALIK, TONSILECTOMY Hx Anesthesia Reactions: No Infectious Disease History: Denies: Hx Hepatitis, Hx Shingles, Hx Tuberculosis - Family History Known Family History: Positive: Hypertension - Social History Alcohol Use: None Substance Use Type: Reports: None Hx Tobacco Use: Yes - CHEW Smoking Status (MU): Former Smoker Review of Systems Negative: Fever Cardiovascular: Other - hypotension Negative: Chest Pain Positive: Shortness Of Breath Neurological: Other - POS: confusion Positive: Weakness All Other Systems Reviewed And Are Negative: Yes Physical Exam - Summary Physical Exam Summary: VITAL SIGNS: Reviewed. GENERAL: Patient is an elderly male who is lying comfortable in the stretcher. HEAD AND FACE: No signs of trauma. No ecchymosis, hematomas or skull depressions. No sinus tenderness. EYES: PERRLA, EOMI x 2, No injected conjunctiva, no nystagmus. EARS: Hearing grossly intact. Ear canals and tympanic membranes are within normal limits. MOUTH: Oropharynx within normal limits. NECK: Supple, trachea is midline, no adenopathy, no JVD, no carotid bruit, no c- spine tenderness, neck with full ROM. CHEST: Symmetric, no tenderness at palpation LUNGS: Decreased breath sounds. CVS: Regular rate and rhythm, S1 and S2 present, but distant heart sounds. No murmurs or gallops appreciated. ABDOMEN: Soft, non-tender. No signs of distention. No rebound no guarding, and no masses palpated. Bowel sounds are normal. EXTREMITIES: FROM in all major joints, no edema, no cyanosis or clubbing. NEURO: Alert and oriented x 3. No acute neurological deficits. Speech is normal and follows commands. SKIN: Dry and warm. Pt has cyanosis of the lips and tip of the fingers. Triage Information Reviewed: Yes Vital Signs Reviewed: Yes Diagnostics - Laboratory Result Diagrams: 05/26/17 12:23 05/26/17 12:23 Lab Statement: Any lab studies that have been ordered have been reviewed, and results considered in the medical decision making process. - Radiology Chest XR Xray Interpretation: Positive (See Comments) - IMPRESSION: 1. The constellatio of findings is most consistent with pulmonary vascular congestion and interstitial edema with associated small effusions. 2. RIGHT greater than LEFT basilar atelectasis favored over pneumonia. 3. Chronic obstructive pulmonary disease based on correlation with prior CT. Dr. Tirado has reviewed this radiology report. Radiology Interpretation Completed By: Radiologist - EKG 12:16 Cardiac Rate: NL EKG Rhythm: Sinus Rhythm - at 75 bpm EKG Interpretation: Q waves in III and aVF. T wave inversion in aVL. Left bundle branch block. Course/Dx - Course Assessment/Plan: Pt is a 77 y/o male presenting to [facility] c/o SOB, hypotension and confusion. Family member also states pt has generalized weakness. Per family member, pt was supposed to see her PCP today regarding her hypotension. Family member states he suddenly became confused and drove to his brother's house forgetting where his PCP was located. Denies fever, chills, negar pain. He chews tobacco. Pt wears oxygen at home at night. PMHx includes CVA, aortic valve replacement, seizures. Test results show WBC of 13.9, acute renal failure with BUN of 40 and creatinine of 2.4, glucose of 148, lactic acid of 3.6 , troponin of 0.18, BNP of 931. In the ED course initially we obtained 2 IV access, and pt was started on IV fluid even though the pt seems to be in failure but he is hypotensive. We also started him on dopamine. The pt was given Zosyn since he may have a right lobe infiltrate. ABG shows pH 7.25, pCO2 of 47, pO2 of 82, O2 saturation of 96.4. The pt was placed on BiPAP and I ordered an echocardiogram. At this time I discussed the case with Dr. Velasquez, shuttle fitting supervisor, who accepted the pt for admission to the ICU services. Pt is still hypotensive but is feeling better. Pt is critical. Dr. Velasquez will follow up echocardiogram results. - Diagnoses Provider Diagnoses: CHF (congestive heart failure), Pulmonary edema, Hypotension, Acute renal failure - Physician Notifications Discussed Care of Patient With: Vladimir Velasquez Time Discussed With Above Provider: 13:14 Instructed by Provider To: Other - I discussed pt care with Dr. Velasquez, shuttle fitting supervisor, who has agreed to admit the pt. - Critical Care Time Critical Care Time: 75-104 min Discharge - Sign-Out/Discharge Documenting (check all that apply): Discharge - admit to [facility] - Discharge Plan Condition: Critical Disposition: ADMITTED TO [facility] documentation as recorded by the Darwin cope Angela accurately reflects the service I personally performed and the decisions made by me, Shane Tirado MD.
== END 2017-05-26 16:11 | disposition home or self-care (01) | DRG 291 ==
LOC: ED 12:00 → ICU 13:53 → UNDODISIN 16:11
PROVIDERS: ADMIT Internal Medicine Critical Care Medicine; ATTEND Internal Medicine Critical Care Medicine
DX: I50.21 Acute systolic (congestive) heart failure (principal); J96.01 Acute respiratory failure with hypoxia; R57.0 Cardiogenic shock; J96.02 Acute respiratory failure with hypercapnia; J98.11 Atelectasis; N17.9 Acute kidney failure, unspecified; G93.1 Anoxic brain damage, not elsewhere classified; I47.2 Ventricular tachycardia; I44.7 Left bundle-branch block, unspecified; J43.9 Emphysema, unspecified; I48.0 Paroxysmal atrial fibrillation; I95.9 Hypotension, unspecified; G40.909 Epilepsy, unspecified, not intractable, without status epilepticus; F03.90 Unspecified dementia, unspecified severity, without behavioral disturbance, psychotic disturbance, mood disturbance, and anxiety; Z86.73 Personal history of transient ischemic attack (TIA), and cerebral infarction without residual deficits; Z88.8 Allergy status to other drugs, medicaments and biological substances; Z99.81 Dependence on supplemental oxygen; Z79.899 Other long term (current) drug therapy; Z82.49 Family history of ischemic heart disease and other diseases of the circulatory system; Z87.891 Personal history of nicotine dependence; Z95.3 Presence of xenogenic heart valve; I25.10 Atherosclerotic heart disease of native coronary artery without angina pectoris; Z79.01 Long term (current) use of anticoagulants; Z79.84 Long term (current) use of oral hypoglycemic drugs; Z79.82 Long term (current) use of aspirin
CPT/HCPCS: 36415; 36600; 71045; 76775; 80053; 82550; 82553; 82803; 83605; 83874; 83880; 84145; 84484; 85025; 85730; 86140; 92950; 93005; 93306; 99285; J0171; J0282; J1265; J2543